=== PATIENT | female | born 2000 | race Hispanic/Latino ===

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

== ENCOUNTER 2024-03-18 18:51 | Emergency (ER) | payer SELFPAY ==
[~2024-03-18] VITALS: Ht 167.6 cm; Wt 72.0 kg
[2024-03-18 19:40] VITALS: BP 128/109
[2024-03-18 19:41] VITALS: BP 103/60
[2024-03-18] MEDS ORDERED: LIDOcaine HCl 1% (Local Anesth.) 20 ML VIAL STI ONE (20:10)
== END 2024-03-18 22:08 | disposition home or self-care (01) | DRG 605 ==
LOC: ED 18:51
PROC: 0HQGXZZ Repair Left Hand Skin, External Approach (ICD-10-PCS; principal; 2024-03-18)
DX: S61.211A Laceration without foreign body of left index finger without damage to nail, initial encounter (principal); W26.0XXA Contact with knife, initial encounter; Y93.G1 Activity, food preparation and clean up; Y92.89 Other specified places as the place of occurrence of the external cause; Y99.0 Civilian activity done for income or pay

== ENCOUNTER 2024-03-28 09:57 | Emergency (ER) | payer SELFPAY ==
[~2024-03-28] VITALS: Ht 167.6 cm; Wt 72.6 kg
[2024-03-28 10:07] VITALS: BP 110/61
[2024-03-28 10:16] VITALS: BP 114/84
[2024-03-28 10:17] VITALS: BP 114/84
== END 2024-03-28 10:29 | disposition home or self-care (01) | DRG 950 ==
LOC: ED 09:57
DX: S61.211D Laceration without foreign body of left index finger without damage to nail, subsequent encounter (principal); X58.XXXD Exposure to other specified factors, subsequent encounter